=== PATIENT | male | born 1940 | race Asian ===

== ENCOUNTER 2017-04-11 22:08 | Inpatient (IN) | payer OTHER, MEDICARE ==
[~2017-04-11] VITALS: Ht 170.2 cm; Wt 66.7 kg
[2017-04-11 22:19] VITALS: BP_SYST 147
[2017-04-11 23:31] LABS: BASOPHILS # (AUTO) 0.1 K/uL (0.0-0.2); BASOPHILS % (AUTO) 0.8 % (0.0-2.0); EOSINOPHILS # (AUTO) 0.3 K/uL (0.0-0.4); EOSINOPHILS % (AUTO) 4.3 % (0.0-4.0); HEMATOCRIT 35.4 % (36-54); HEMOGLOBIN 11.9 g/dL (14.0-18.0); LYMPHOCYTES # (AUTO) 1.4 K/uL (1.0-5.5); LYMPHOCYTES % (AUTO) 21.1 % (20.5-51.5); MEAN CORPUSCULAR HEMOGLOBIN 31 pg (27-31); MEAN CORPUSCULAR HGB CONC 34 % (32-36); MEAN CORPUSCULAR VOLUME 91 fL (79.0-98.0); MONOCYTES # (AUTO) 0.6 K/uL (0.0-1.0); MONOCYTES % (AUTO) 9.2 % (1.7-9.3); NEUTROPHILS # (AUTO) 4.1 K/uL (1.8-7.7); NEUTROPHILS % (AUTO) 64.6 % (40.0-70.0); PLATELET COUNT (AUTO) 222 K/uL (130-430); RED BLOOD CELL COUNT(AUTO) 3.87 MIL/uL (4.2-6.2); RED CELL DISTRIBUTION WIDTH 13.1 % (9.0-15.0); WHITE BLOOD COUNT (AUTO) 6.5 K/uL (4.8-10.8)
[2017-04-12 01:00] LABS: BILIRUBIN,URINE NEGATIVE (NEGATIVE); BLOOD, URINE NEGATIVE (NEGATIVE); CLARITY/URINE CLEAR (CLEAR); COLOR,URINE YELLOW (YELLOW); GLUCOSE,URINE NEGATIVE (NEGATIVE); KETONES,URINE NEGATIVE (NEGATIVE); LEUKOCYTE ESTERASE ,URINE NEGATIVE (NEGATIVE); NITRITE, URINE NEGATIVE (NEGATIVE); PH,URINE 5.5 (5.0-8.0); PROTEIN URINE TRACE (NEGATIVE); UROBILINOGEN,URINE 0.2 (0.2-1.0)
[2017-04-12] MEDS ORDERED: FERR-57 PO (02:20)
[2017-04-12] MEDS ORDERED: NEU300 PO (02:20)
[2017-04-12] MEDS ORDERED: [UNRECOGNIZED DRUG - OTHER] (02:20)
[2017-04-12] MEDS ORDERED: MEMA1CAP2 PO (02:20)
[2017-04-12] MEDS ORDERED: LEVO88TA2 PO (02:20)
[2017-04-12] MEDS ORDERED: LIOT5TAB10 PO (02:20)
[2017-04-12] MEDS ORDERED: LINA5TAB2 PO (02:20)
[2017-04-12] MEDS ORDERED: RAMI2.5C34 PO (02:20)
[2017-04-12] MEDS ORDERED: LIP20 PO (02:20)
[2017-04-12] MEDS ORDERED: GLIM2TAB2 PO ×2 (02:20)
[2017-04-12] MEDS ORDERED: ASPI81TA2 PO (02:20)
[2017-04-12 03:25] LABS: ANION GAP 8 (5-15); CALCIUM 7.9 mg/dL (8.4-11.0); CHLORIDE 105 mmol/L (98-107); CREATININE 2.78 mg/dL (0.55-1.30); GLUCOSE 162 mg/dL (70-99); POTASSIUM 4.7 mmol/L (3.5-5.1); SODIUM SERUM 138 mmol/L (136-145); UREA NITROGEN, BLOOD 33 mg/dL (8-21)
[2017-04-12 03:32] LABS: ALANINE AMINOTRANSFERASE 30 U/L (12-78); ALBUMIN 3.5 g/dL (3.4-4.8); ASPARTATE AMINOTRANSFERASE 19 U/L (10-37); TOTAL BILIRUBIN 0.4 mg/dL (0.0-1.0)
[2017-04-12] MEDS ORDERED: NITROGLYCERIN 0.4 MG TAB.SUBL SL PRN (04:15)
[2017-04-12] MEDS ORDERED: ASPIRIN 81 MG TAB.CHEW PO ONE (04:15)
[2017-04-12] MEDS ORDERED: ASPIRIN 81 MG TAB.CHEW ONE (04:30)
[2017-04-12] MEDS ORDERED: ASPIRIN 81 MG TAB.CHEW PO SCH (04:30)
[2017-04-12 05:04] VITALS: BP_SYST 157
[2017-04-12] MEDS ORDERED: FLU VACC QS 2017-18(36MOS+)/PF 0.5 ML/SYR SYRINGE I.M. PRN (06:00)
[2017-04-12 08:00] VITALS: BP_SYST 156
[2017-04-12] MEDS ORDERED: DEXTROSE 50%-WATER 50 ML DISP.SYRIN IVP PRN ×2 (08:00)
[2017-04-12] MEDS ORDERED: GLUCOSE 15 GM GEL (in 37.5 GM TUBE) PO PRN ×2 (08:00)
[2017-04-12] MEDS ORDERED: RAMIPRIL 2.5 MG CAPSULE (ALTACE) PO SCH (09:00)
[2017-04-12] MEDS ORDERED: ATORVASTATIN 20 MG TABLET PO SCH ×2 (09:00→21:00)
[2017-04-12] MEDS: LISINOPRIL 10 MG TABLET (PRINIVIL) PO ONE ×2 (10:30→11:57)
[2017-04-12] MEDS: GLIMEPIRIDE 2 MG TABLET PO SCH (11:56)
[2017-04-12] MEDS: GABAPENTIN 300 MG CAPSULE PO SCH (11:56)
[2017-04-12] MEDS: NACL 0.9% 1,000 ML IV SCH ×2 (11:57→22:51)
[2017-04-12 12:00] VITALS: BP_SYST 149
[2017-04-12] MEDS: INSULIN ASPART 100 UNITS/ML, 10 ML VIAL (NovoLOG) SUBCUT PRN ×2 (12:01→20:43)
[2017-04-12 16:00] VITALS: BP_SYST 156
[2017-04-12] MEDS ORDERED: COMMUNICATION ORDER XX ONE (19:00)
[2017-04-12] MEDS ORDERED: LISINOPRIL 10 MG TABLET (PRINIVIL) ONE (19:47)
[2017-04-12 20:00] VITALS: BP_SYST 129
[2017-04-12 23:52] VITALS: BP_SYST 133
[2017-04-13] MEDS: NACL 0.9% 1,000 ML IV SCH (02:04)
[2017-04-13 03:54] VITALS: BP_SYST 147
[2017-04-13 04:00] VITALS: BP_SYST 133
[2017-04-13 06:30] LABS: BASOPHILS % (AUTO) 0.5 % (0.0-2.0); EOSINOPHILS # (AUTO) 0.1 K/uL (0.0-0.4); EOSINOPHILS % (AUTO) 1.7 % (0.0-4.0); HEMATOCRIT 36.1 % (36-54); LYMPHOCYTES % (AUTO) 13.8 % (20.5-51.5); MEAN CORPUSCULAR HEMOGLOBIN 31 pg (27-31); MEAN CORPUSCULAR HGB CONC 33 % (32-36); MEAN CORPUSCULAR VOLUME 92 fL (79.0-98.0); MONOCYTES # (AUTO) 0.6 K/uL (0.0-1.0); NEUTROPHILS # (AUTO) 5.8 K/uL (1.8-7.7); PLATELET COUNT (AUTO) 199 K/uL (130-430); RED BLOOD CELL COUNT(AUTO) 3.95 MIL/uL (4.2-6.2); RED CELL DISTRIBUTION WIDTH 12.6 % (9.0-15.0); WHITE BLOOD COUNT (AUTO) 7.4 K/uL (4.8-10.8)
[2017-04-13 06:54] LABS: ALANINE AMINOTRANSFERASE 32 U/L (12-78); ALBUMIN 3.5 g/dL (3.4-4.8); ANION GAP 8 (5-15); ASPARTATE AMINOTRANSFERASE 24 U/L (10-37); CALCIUM 8.3 mg/dL (8.4-11.0); CHLORIDE 108 mmol/L (98-107); GLUCOSE 69 mg/dL (70-99); POTASSIUM 4.3 mmol/L (3.5-5.1); SODIUM SERUM 140 mmol/L (136-145); TOTAL BILIRUBIN 0.4 mg/dL (0.0-1.0); UREA NITROGEN, BLOOD 32 mg/dL (8-21)
[2017-04-13] MEDS ORDERED: LEVOTHYROXINE SODIUM 0.088 MG TABLET PO SCH (07:00)
[2017-04-13 08:00] VITALS: BP_SYST 134
[2017-04-13] MEDS ORDERED: LISINOPRIL 10 MG TABLET (PRINIVIL) PO SCH (09:00)
[2017-04-13] MEDS: GLIMEPIRIDE 2 MG TABLET PO SCH (10:00)
[2017-04-13] MEDS: GABAPENTIN 300 MG CAPSULE PO SCH (10:00)
[2017-04-13] MEDS: INSULIN ASPART 100 UNITS/ML, 10 ML VIAL (NovoLOG) SUBCUT PRN (12:28)
[2017-04-13 12:31] VITALS: BP_SYST 119
[2017-04-13 16:32] VITALS: BP_SYST 129
[2017-04-13 17:40] VITALS: BP_SYST 129
== END 2017-04-13 18:10 | disposition home or self-care (01) | DRG 683 ==
LOC: SED 22:08 → STU 04-12 04:15
PROVIDERS: ADMIT Internal Medicine; ATTEND Internal Medicine
DX: N17.9 Acute kidney failure, unspecified (principal); I69.354 Hemiplegia and hemiparesis following cerebral infarction affecting left non-dominant side; E11.22 Type 2 diabetes mellitus with diabetic chronic kidney disease; E11.40 Type 2 diabetes mellitus with diabetic neuropathy, unspecified; I12.9 Hypertensive chronic kidney disease with stage 1 through stage 4 chronic kidney disease, or unspecified chronic kidney disease; N18.4 Chronic kidney disease, stage 4 (severe); R07.89 Other chest pain; F03.90 Unspecified dementia, unspecified severity, without behavioral disturbance, psychotic disturbance, mood disturbance, and anxiety; N18.9 Chronic kidney disease, unspecified; N40.0 Benign prostatic hyperplasia without lower urinary tract symptoms; Z79.4 Long term (current) use of insulin; Z87.891 Personal history of nicotine dependence; Z79.82 Long term (current) use of aspirin; Z79.899 Other long term (current) drug therapy
CPT/HCPCS: 36415; 71010; 76770; 80053; 81003; 82550-TC; 82962; 83880; 84484; 85025; 93005; 93306; 99285; J7030; Q2037